=== PATIENT | female | born 1990 | race Caucasian/White ===

== ENCOUNTER 2018-05-22 14:37 | Outpatient (CLI) | payer OTHER ==
[2018-05-22 15:28] LABS: HEMATOCRIT 36.1 % (36.0-47.0); HEMOGLOBIN 12.4 g/dl (12.0-15.5); MEAN CORPUSCULAR HEMOGLOBIN 29.9 pg (27.0-33.0); MEAN CORPUSCULAR HGB CONC 34.3 g/dl (32.0-36.5); PLATELET COUNT, AUTOMATED 198 10^3/uL (150-450); RED BLOOD COUNT 4.15 10^6/uL (4.00-5.40); RED CELL DISTRIBUTION WIDTH 12.6 % (11.5-14.5); WHITE BLOOD COUNT 9.4 10^3/uL (4.0-10.0)
[2018-05-22 15:36] LABS: TOTAL PROTEIN,RANDOM URINE < 5.0 MG/DL (0.0-12.0)
[2018-05-22 15:36] LABS: CREATININE,RANDOM URINE 25.9 MG/DL
[2018-05-22 15:45] LABS: ALT/SGPT 24 U/L (12-78); AST/SGOT 18 U/L (7-37); BILIRUBIN,TOTAL 0.2 MG/DL (0.2-1.0); CREATININE FOR GFR 0.51 MG/DL (0.55-1.30); GLOMERULAR FILTRATION RATE > 60.0 (>60); LDH LACTATE DEHYDROGENASE 134 U/L (84-246); URIC ACID 3.5 MG/DL (2.6-6.0)
[2018-05-22 16:18] LABS: BEDSIDE GLUCOSE 74 MG/DL (70-105)
== END 2018-05-22 16:20 | disposition home or self-care (01) ==
LOC: M LDO 14:37
DX: O99.89 Other specified diseases and conditions complicating pregnancy, childbirth and the puerperium (principal); R03.0 Elevated blood-pressure reading, without diagnosis of hypertension; G43.909 Migraine, unspecified, not intractable, without status migrainosus; Z3A.34 34 weeks gestation of pregnancy
CPT/HCPCS: 59025

== ENCOUNTER 2018-06-29 15:04 | Inpatient (IN) | payer OTHER ==
[2018-06-29 16:04] LABS: HEMATOCRIT 36.1 % (36.0-47.0); HEMOGLOBIN 12.6 g/dl (12.0-15.5); MEAN CORPUSCULAR HEMOGLOBIN 29.8 pg (27.0-33.0); MEAN CORPUSCULAR HGB CONC 34.9 g/dl (32.0-36.5); MEAN CORPUSCULAR VOLUME 85.3 fl (80.0-96.0); PLATELET COUNT, AUTOMATED 180 10^3/uL (150-450); RED BLOOD COUNT 4.23 10^6/uL (4.00-5.40); RED CELL DISTRIBUTION WIDTH 12.2 % (11.5-14.5); WHITE BLOOD COUNT 8.6 10^3/uL (4.0-10.0)
[2018-06-29] MEDS: LACTATED RINGER'S 1000 ML IV (16:22)
[2018-06-29] MEDS: LR 1,000 ML IV ×2 (16:22→20:58)
[2018-06-29] MEDS ORDERED: OXYTOCIN 30 UNITS IN 0.9% NaCl 500ML IV BAG (J2590) As Ordered (16:31)
[2018-06-29] MEDS: PENICILLIN G POTASSIUM IV 5 MU in D5W MINI-BAG PLUS 100 ML IV (16:36)
[2018-06-29 16:46] LABS: APPEARANCE, URINE CLEAR (CLEAR); BACTERIA, URINE AUTO 1+ (NEGATIVE); BILIRUBIN, URINE AUTO NEGATIVE (NEGATIVE); BLOOD, URINE BLOOD NEGATIVE (NEGATIVE); COLOR, URINE YELLOW (YELLOW); GLUCOSE, URINE (UA) AUTO 3+ mg/dL (NEGATIVE); KETONE, URINE AUTO NEGATIVE (NEGATIVE); LEUKOCYTE ESTERASE, URINE AUTO TRACE (NEGATIVE); MUCUS, URINE SMALL (NEGATIVE); NITRITE, URINE AUTO NEGATIVE (NEGATIVE); PROTEIN, URINE AUTO NEGATIVE (NEGATIVE); RBC, URINE AUTO 0 /HPF (0-3); SPECIFIC GRAVITY URINE AUTO 1.014 (1.002-1.035); SQUAMOUS EPITHELIAL CELL UR AU 2 /HPF (0-6); UROBILINOGEN, URINE AUTO 0.2 mg/dL (0.0-2.0); WBC, URINE AUTO 3 /HPF (0-3)
[2018-06-29] MEDS: OXYTOCIN DRIP 30 UNITS in APPROPRIATE DILUENT 1 EA IV (16:55)
[2018-06-29 17:42] LABS: ALT/SGPT 17 U/L (12-78); AST/SGOT 20 U/L (7-37); BILIRUBIN,TOTAL 0.2 MG/DL (0.2-1.0); CREATININE FOR GFR 0.75 MG/DL (0.55-1.30); GLOMERULAR FILTRATION RATE > 60.0 (>60); LDH LACTATE DEHYDROGENASE 178 U/L (84-246); URIC ACID 5.6 MG/DL (2.6-6.0)
[2018-06-29] MEDS: FAMOTIDINE 20 MG TAB PO (17:56)
[2018-06-29] MEDS ORDERED: FAMOTIDINE 20 MG TAB PO (18:00)
[2018-06-29] MEDS: PENICILLIN G POTASSIUM IV 2.5 MU in APPROPRIATE DILUENT 1 EA IV (20:30)
[2018-06-29] MEDS ORDERED: FENTANYL 2MCG/ML ROPIVACAINE 0.2% IN 0.9% NACL 200ML IVBAG As Ordered (22:36)
[2018-06-30] MEDS: LR 1,000 ML IV ×2 (00:24→20:39)
[2018-06-30] MEDS ORDERED: EPIDURAL COMMENT XX (00:30)
[2018-06-30] MEDS ORDERED: NALOXONE INJ 0.4 MG/1 ML VIAL (J2310) IV (00:30)
[2018-06-30] MEDS ORDERED: REFRIGERATOR IV KEYS XX (00:30)
[2018-06-30] MEDS ORDERED: LACTATED RINGER'S 1000 ML IV (00:30)
[2018-06-30] MEDS ORDERED: ePHEDrine SULFATE 25 MG/5 ML(5MG/ML) SYRINGE IV (00:30)
[2018-06-30] MEDS ORDERED: EPIDURAL/PCA KEYS XX (00:30)
[2018-06-30] MEDS ORDERED: FENTANYL/ROPIVACAINE/NACL BAG 200 ML EPIDURAL (00:30)
[2018-06-30] MEDS ORDERED: ONDANSETRON 4MG/2ML VIAL (J2405) IV (00:30)
[2018-06-30] MEDS ORDERED: diphenhydrAMINE INJ 50MG/ML VIAL (J1200) IV (00:30)
[2018-06-30] MEDS: PENICILLIN G POTASSIUM IV 2.5 MU in APPROPRIATE DILUENT 1 EA IV (00:40)
[2018-06-30] MEDS: OXYTOCIN DRIP 30 UNITS in APPROPRIATE DILUENT 1 EA IV (05:21)
[2018-06-30] MEDS ORDERED: DIBUCAINE 1% OINTMENT 30GM TOP (05:30)
[2018-06-30] MEDS ORDERED: MEASLES,MUMPS,RUBELLA VACCINE INJ (MMR-II) (90707) SC (05:30)
[2018-06-30] MEDS ORDERED: RHOGAM 300 MCG (1500 IU) INJ (J2790) IM (05:30)
[2018-06-30] MEDS ORDERED: DOCUSATE SODIUM 100 MG CAP PO (05:30)
[2018-06-30] MEDS ORDERED: ANUSOL HC CREAM 30GM TOP (05:30)
[2018-06-30] MEDS: PRENATAL VITAMINS CHEWABLE TABLET PO (08:24)
[2018-06-30] MEDS: IBUPROFEN 800 MG TAB PO ×2 (08:25→18:23)
[2018-06-30] MEDS: ACETAMINOPHEN 500 MG TAB PO ×2 (08:33→15:24)
[2018-06-30] MEDS: PERCOCET 5MG/325MG TAB PO (20:58)
[2018-07-01] MEDS: LR 1,000 ML IV (00:15)
[2018-07-01] MEDS: PERCOCET 5MG/325MG TAB PO (05:20)
[2018-07-01] MEDS: PRENATAL VITAMINS CHEWABLE TABLET PO (08:52)
== END 2018-07-01 12:30 | disposition home or self-care (01) | DRG 774 ==
LOC: M LDI 15:04 → M OBS 06-30 06:40
PROVIDERS: Obstetrics & Gynecology
PROC: 3E033VJ Introduction of Other Hormone into Peripheral Vein, Percutaneous Approach (ICD-10-PCS; 2018-06-29)
PROC: 10E0XZZ Delivery of Products of Conception, External Approach (ICD-10-PCS; principal; 2018-06-30)
PROC: 0KQM0ZZ Repair Perineum Muscle, Open Approach (ICD-10-PCS; 2018-06-30)
PROC: 10907ZC Drainage of Amniotic Fluid, Therapeutic from Products of Conception, Via Natural or Artificial Opening (ICD-10-PCS; 2018-06-30)
DX: O10.02 Pre-existing essential hypertension complicating childbirth (principal); Z68.41 Body mass index [BMI] 40.0-44.9, adult; R10.2 Pelvic and perineal pain; Z37.0 Single live birth; Z3A.39 39 weeks gestation of pregnancy; E66.9 Obesity, unspecified; Z79.82 Long term (current) use of aspirin; K21.9 Gastro-esophageal reflux disease without esophagitis; Z79.899 Other long term (current) drug therapy; F43.10 Post-traumatic stress disorder, unspecified; F41.9 Anxiety disorder, unspecified; Z88.8 Allergy status to other drugs, medicaments and biological substances; O99.824 Streptococcus B carrier state complicating childbirth; O99.214 Obesity complicating childbirth; O99.344 Other mental disorders complicating childbirth; O99.62 Diseases of the digestive system complicating childbirth; O69.1XX0 Labor and delivery complicated by cord around neck, with compression, not applicable or unspecified; O70.1 Second degree perineal laceration during delivery

== ENCOUNTER 2018-11-17 18:24 | Emergency (ER) | payer OTHER ==
[~2018-11-17] VITALS: Ht 165.1 cm; Wt 97.7 kg
[~2018-11-17 18:24] MED LIST: ASPI81CH PO; BENA25CA4 PO; IBUP200C25 PO; MAPA500T2 PO; PEPC1TAB5 PO; PRENTAB9 PO; ZANTTAB9 PO
[2018-11-17] MEDS ORDERED: ZOLO50TA PO (18:33)
[2018-11-17] MEDS ORDERED: NEXI40GR PO (18:33)
[2018-11-17] MEDS ORDERED: PROZ20CA11 PO (20:12)
[2018-11-17 20:14] VITALS: BP 153/80
== END 2018-11-17 20:18 | disposition home or self-care (01) ==
LOC: M ED 18:24
DX: F41.1 Generalized anxiety disorder (principal); T43.225A Adverse effect of selective serotonin reuptake inhibitors, initial encounter; F32.9 Major depressive disorder, single episode, unspecified; F43.10 Post-traumatic stress disorder, unspecified; Z87.891 Personal history of nicotine dependence; Z88.8 Allergy status to other drugs, medicaments and biological substances; Z79.899 Other long term (current) drug therapy